=== PATIENT | female | born 1990 | race Two or more races ===

== ENCOUNTER 2018-02-21 10:42 | Emergency (ER) | payer OTHER ==
[~2018-02-21] VITALS: Ht 157.5 cm; Wt 64.4 kg
== END 2018-02-21 12:40 | disposition home or self-care (01) ==
LOC: ER 10:42
DX: J09.X2 Influenza due to identified novel influenza A virus with other respiratory manifestations (principal)

== ENCOUNTER 2018-08-04 11:23 | Emergency (ER) | payer OTHER ==
[~2018-08-04] VITALS: Ht 157.5 cm; Wt 61.2 kg
== END 2018-08-04 17:18 | disposition home or self-care (01) ==
LOC: ER 11:23
DX: R42 Dizziness and giddiness (principal)

== ENCOUNTER 2019-02-24 11:21 | Emergency (ER) | payer OTHER ==
[~2019-02-24] VITALS: Ht 157.5 cm; Wt 59.0 kg
== END 2019-02-24 16:44 | disposition home or self-care (01) ==
LOC: ER 11:21
DX: S13.8XXA Sprain of joints and ligaments of other parts of neck, initial encounter (principal); M25.512 Pain in left shoulder; M25.511 Pain in right shoulder; V49.88XA Car occupant (driver) (passenger) injured in other specified transport accidents, initial encounter; Y93.89 Activity, other specified; Y92.488 Other paved roadways as the place of occurrence of the external cause; Y99.8 Other external cause status

== ENCOUNTER 2022-07-20 20:31 | Emergency (ER) | payer OTHER ==
[~2022-07-20] VITALS: Ht 167.6 cm; Wt 61.7 kg
[~2022-07-20 20:31] MED LIST: PEPCID AC20 MG PO
== END 2022-07-20 23:26 | disposition home or self-care (01) ==
LOC: ER 20:31
DX: J03.80 Acute tonsillitis due to other specified organisms (principal); B96.89 Other specified bacterial agents as the cause of diseases classified elsewhere; Z20.822 Contact with and (suspected) exposure to COVID-19

== ENCOUNTER 2023-06-30 08:24 | Emergency (ER) | payer OTHER ==
[~2023-06-30] VITALS: Ht 157.5 cm; Wt 60.8 kg
== END 2023-06-30 10:20 | disposition home or self-care (01) ==
LOC: ER 08:25
DX: N63.20 Unspecified lump in the left breast, unspecified quadrant (principal)

== ENCOUNTER 2023-06-30 09:23 | Outpatient (CLI) | payer OTHER | END 2023-06-30 09:32 | disposition home or self-care (01) | LOC: MAMO-SONO 09:23 | DX: N63.20 Unspecified lump in the left breast, unspecified quadrant (principal) ==

== ENCOUNTER 2023-10-10 08:42 | Emergency (ER) | payer OTHER ==
[~2023-10-10] VITALS: Ht 157.5 cm; Wt 60.8 kg
[2023-10-10] MEDS ORDERED: KETOROLAC TROMETHAMINE 30 MG VIAL IM STA (09:19)
[2023-10-10] MEDS ORDERED: ORPHENADRINE CITRATE 30 MG/ML AMPUL IM STA (09:19)
== END 2023-10-10 09:41 | disposition home or self-care (01) ==
LOC: ER 08:43
DX: M79.602 Pain in left arm (principal)